=== PATIENT | female | born 1980 | race Two or more races ===

== ENCOUNTER 2016-12-03 19:14 | Emergency (ER) | payer SELFPAY ==
--- NOTE | ~2016-12-03 | CT69 ---
[facility] A Service [facility] RADIOLOGY TEXT RESULTS PATIENT: GWEN MCKEON LOCATION: SED : 82 UNIT #: [id number] AGE: [address]: Blane Peter MD SEX: F ORDER DR: [id number] [place] [id number] E MR#: [id number] Acc #: [id number] NAME: GWEN MCKEON : 1980 SEX: F STUDY DATE/TIME: 12/03/2016 21:35 UNIT: SED ROOM: STUDY DESCRIPTION: CT Head W Contrast Attending Physician: Blane Peter M.D. Ordering Physician: Blane Peter M.D. [facility] RE[facility] This report is preliminary unless electronic signature is present. EXAM Head CT with contrast HISTORY Head injury yesterday. Question of hemorrhage versus a prominent draining vein in the left cerebral hemisphere. TECHNIQUE Axial imaging was obtained with intravenous contrast. 100 mL of Isovue was used. This CT exam was performed with one or more of the following radiation dose reduction techniques: Automatic exposure control, adjustment of mA and/or kV according to patient size, and iterative reconstruction. FINDINGS The postcontrast imaging confirm a large left-sided venous angioma with a central draining vein accounting for the CT abnormality. There is no evidence of hemorrhage. Vascular structures elsewhere in the brain are unremarkable. The venous angioma drains to the left internal cerebral vein. IMPRESSION The abnormality seen on CT represents a venous angioma. No evidence of hemorrhage. Dictated by... Jorje Haney M.D. THIS IS AN ELECTRONICALLY VERIFIED REPORT Jorje Haney M.D. at 12/04/2016 10:08 AM RLF/psc [facility] A Service [facility] RADIOLOGY TEXT RESULTS PATIENT: GWEN MCKEON LOCATION: SED : [birth year] UNIT #: [id number] AGE: [address]: Blane Peter MD SEX: F ORDER DR: TD: 12/03/2016 23:05 JOB #: [id number] MEDICAL IMAGING REPORT Page 1 of 1
--- NOTE | ~2016-12-03 | EKG ---
PATIENT: GWEN MCKEON UNIT #: [id number] Ventricular Rate: 63 BPM Atrial Rate: 63 BPM P-R Interval: 164 ms QRS Duration: 96 ms Q-T Interval: 396 ms QTC Calculation(Bezet): 405 ms P [place]: 81 degrees Calculated R [place]: 87 degrees Calculated T [place]: 67 degrees Diagnosis Line: Normal sinus rhythm Diagnosis Line: Normal ECG Diagnosis Line: No previous ECGs available Diagnosis Line: Confirmed by BARBER BAKER MD ([id number]) on 12/10/2016 Diagnosis Line: 11:54:04 AM INTERPRETING MD: OLIVIA MORGAN
--- NOTE | ~2016-12-03 | CT71 ---
[facility] A Service of [facility] RADIOLOGY TEXT RESULTS PATIENT: GWEN MCKEON LOCATION: SED : [birth year] UNIT #: [id number] AGE: [address]: Blane Peter MD SEX: F ORDER DR: [id number] [address] [id number] E MR#: [id number] Acc #: [id number] NAME: GWEN MCKEON : 1980 SEX: F STUDY DATE/TIME: 12/03/2016 21:01 UNIT: SED ROOM: STUDY DESCRIPTION: CT Head Wo Contrast Attending Physician: Blane Peter M.D. Ordering Physician: Blane Peter M.D. Primary Care Physician: [facility], MEDICAL IMAGING REPORT This report is preliminary unless electronic signature is present. EXAM Head CT without contrast. DATE OF EXAM 12/03/2016 HISTORY Patient fell yesterday and complains of dizziness. Head injury. TECHNIQUE Axial images were obtained without contrast. NOTE: This CT exam was performed with one or more of the following radiation dose reduction techniques: automatic exposure control, adjustment of mA and/or kV according to patient size, and iterative reconstruction. FINDINGS Axial images without contrast show small focus of increased density in the body of the caudate nucleus on the left, somewhat linear in configuration. This is suspicious for a small hemorrhagic contusion. There is no appreciable mass effect no intraventricular extension of bleeding is seen. The remainder of the brain has a normal appearance. No extraaxial fluid collections are seen. The density on the left could also represent a prominent draining vein from venous angioma. I recommend the patient undergo CT of the head with contrast to differentiate these two. The remainder the study is normal. Extraaxial structures are unremarkable. IMPRESSION The study is abnormal. There is a hyperdense linear structure over the left caudate nucleus body and centrum semiovale. It could potentially represent a small bleed. It could also represent a prominent venous angioma with a dominant draining vein. This could be answered with head CT with contrast. Findings discussed with Dr. Peter at the time of this dictation. STS. [facility] A Service of [facility] RADIOLOGY TEXT RESULTS PATIENT: GWEN MCKEON LOCATION: [facility] : [birth year] UNIT #: [id number] AGE: [address]: Blane Peter MD SEX: F ORDER DR: Dictated by... Jorje Haney M.D. THIS IS AN ELECTRONICALLY VERIFIED REPORT Jorje Haney M.D. at 12/04/2016 10:08 AM BULMARO/cricket TD: 12/03/2016 22:55 JOB #: [id number] MEDICAL IMAGING REPORT Page 1 of 1
[~2016-12-03 19:14] MED LIST: COLACE PO; MULTI-DAY1 TAB PO; NORCO 5/325 TAB1 TAB PO; PROCTOFOAM-HC10 G1 TOP
[2016-12-03 20:15] LABS: BASOPHIL% 0.7 % (0-2.5); EOSINOPHIL# 0.3 X10e3 (0-0.7); EOSINOPHIL% 4.8 % (0.0-7.0); HEMATOCRIT 37.7 % (35.0-45.0); HEMOGLOBIN 12.9 gm/dL (12.0-16.0); LYMPHOCYTE# 1.6 X10e3 (1.0-3.5); LYMPHOCYTE% 31.2 % (17.0-45.0); MEAN CELL VOLUME 90.6 FL (83-96); MEAN CORPUSCULAR HEMOGLOBIN 30.9 PG (28-34); MEAN CORPUSCULAR HGB CONC 34.1 g/dL (30-36); MEAN PLATELET VOLUME 8.5 FL (6.5-11.5); MONOCYTE# 0.2 X10e3 (0-1.0); MONOCYTE% 4.6 % (3.0-12.0); NEUTROPHIL# 3.1 X10e3 (1.5-7.1); NEUTROPHIL% 58.7 % (40-75); PLATELET COUNT 192 X10e3 (140-420); RED BLOOD COUNT 4.16 X10e (3.90-5.30); RED CELL DISTRIBUTION WIDTH 12.9 % (11.0-15.5); WHITE BLOOD COUNT 5.3 X10e3 (4.0-10.5)
[2016-12-03 20:16] LABS: DIFF IND NO
[2016-12-03 20:26] LABS: URINE SOURCE CLEAN CATCH
[2016-12-03 20:27] LABS: POC - CKMB <1.0 ng/mL (0.0-7.9); POC - TROPONIN <0.05 ng/mL (<=0.05)
[2016-12-03 20:31] LABS: URINE APPEARANCE CLEAR; URINE BILIRUBIN NEG (NEG); URINE BLOOD NEG (NEG); URINE COLOR YELLOW; URINE GLUCOSE NEG (NORM); URINE KETONE NEG (NEG); URINE LEUKOCYTE ESTERASE NEG (NEG); URINE NITRATE NEG (NEG); URINE PROTEIN NEG (NEG); URINE SPECIFIC GRAVITY <=1.005 (1.003-1.035); URINE UROBILINOGEN 0.2 MG/DL (NORM)
[2016-12-03 20:32] LABS: MICRO INDICATED? NO
[2016-12-03 20:33] LABS: CALCIUM SERUM 8.8 mg/dL (8.4-10.2); CREATININE SERUM 0.6 mg/dL (0.6-1.4); GLOM FILT RATE Estimated 118.1 mL/min (>60); POTASSIUM 3.3 mmol/L (3.5-5.1)
== END 2016-12-03 22:35 | disposition home or self-care (01) ==
LOC: SED 19:14
PROVIDERS: Emergency Medicine
DX: S00.81XA Abrasion of other part of head, initial encounter (principal); S06.0X9A Concussion with loss of consciousness of unspecified duration, initial encounter; R55 Syncope and collapse; X58.XXXA Exposure to other specified factors, initial encounter
CPT/HCPCS: 36415; 70450; 70460; 70470; 80048; 81003; 82553; 84484; 84703; 85025; 93005; 96360; 99284; Q9967